=== PATIENT | male | born 1945 | race Caucasian/White ===

== ENCOUNTER 2017-05-25 20:11 | Emergency (ER) | payer OTHER ==
[~2017-05-25] VITALS: Ht 175.3 cm; Wt 90.7 kg
[2017-05-25] MEDS ORDERED: ZOLOFT50 MG PO (20:48)
[2017-05-25 23:23] VITALS: BP 122/70
== END 2017-05-25 23:24 | disposition home or self-care (01) ==
LOC: ER 20:11
DX: S61.011A Laceration without foreign body of right thumb without damage to nail, initial encounter (principal); F41.9 Anxiety disorder, unspecified; Z88.8 Allergy status to other drugs, medicaments and biological substances; W27.8XXA Contact with other nonpowered hand tool, initial encounter; Y93.89 Activity, other specified; Y92.89 Other specified places as the place of occurrence of the external cause; Y99.8 Other external cause status